=== PATIENT | male | born 1990 | race African-American/Black ===

== ENCOUNTER 2017-06-06 03:51 | Emergency (ER) | payer SELFPAY ==
[2017-06-06 04:56] LABS: BILIRUBIN,URINE NEGATIVE (NEG); CLARITY,URINE HAZY; COLOR,URINE YELLOW; GLUCOSE,URINE NEGATIVE (NEG); PH,URINE 8.5
[2017-06-06 04:57] LABS: BACTERIA,URINE 0 /HPF (0-FEW); NITRITE,URINE NEGATIVE (NEG); PROTEIN,URINE NEGATIVE (NEG-TRACE); RBC,URINE TNTC /HPF (0-2); SQUAMOUS EPITHELIAL CELL,UR OCC /LPF; TRICHOMONAS,URINE PRESENT; UROBILINOGEN,URINE 0.2 mg/dL (0.2 mg/dL)
[2017-06-06] MEDS: KETOROLAC 30 MG/ML INJ. IV (05:05)
[2017-06-06] MEDS: IV NORMAL SALINE 1000ML BAG 1,000 ML IV (05:05)
[2017-06-06 05:07] LABS: ADD MAN DIFF? NO
[2017-06-06 05:09] LABS: BASO # 0.1 x10^3/uL (0.0-0.2); BASO % 1 % (0-3); EOS # 0.3 x10^3/uL (0.0-0.7); EOS % 3 % (0-3); HEMOGLOBIN 14.7 g/dL (13.0-17.5); LYMPH % 30 % (24-48); MEAN CORPUSCULAR HEMOGLOBIN 31 pg (25-35); MEAN CORPUSCULAR HGB CONC 35 g/dL (31-37); MEAN CORPUSCULAR VOLUME 87 fL (79-100); MONO # 0.7 x10^3/uL (0.0-1.1); MONO % 7 % (0-9); NEUT # 5.8 x10^3uL (1.8-7.7); NEUT % 59 % (31-73); PLATELET COUNT 243 x10^3/uL (140-400); WHITE BLOOD COUNT 9.8 x10^3/uL (4.0-11.0)
[2017-06-06 05:23] LABS: ANION GAP 6 (6-14); BLOOD UREA NITROGEN 9 mg/dL (8-26); CALCIUM 8.8 mg/dL (8.5-10.1); CARBON DIOXIDE 28 mmol/L (21-32); CHLORIDE 103 mmol/L (98-107); CREATININE 0.7 mg/dL (0.7-1.3); GFR 166.3; GLUCOSE 94 mg/dL (70-99); INR 1.1 (0.8-1.1); PARTIAL THROMBOPLASTIN TIME 28 SEC (24-38); PROTHROMBIN TIME PATIENT 13.2 SEC (11.7-14.0); SODIUM 137 mmol/L (136-145)
[2017-06-06 05:24] LABS: LIPASE 83 U/L (73-393)
[2017-06-06] MEDS: cefTRIAXone IM 250 MG VIAL IM (06:43)
[2017-06-06] MEDS: AZITHROMYCIN 250 MG TABLET. PO (06:44)
== END 2017-06-06 07:00 | disposition home or self-care (01) ==
LOC: ER 03:51
DX: R31.0 Gross hematuria (principal); A59.9 Trichomoniasis, unspecified
CPT/HCPCS: 36415; 74176; 80048; 81001; 83690; 85025; 85610; 85730; 96361; 96372; 96374; 99285-25; J0696; J1885; J7030; Q0144